=== PATIENT | female | born 1985 | race Caucasian/White ===

== ENCOUNTER 2024-06-15 11:24 | Emergency (ER) | payer BC, SELFPAY ==
--- NOTE | ~2024-06-15 | XR_ITS ---
XR knee LT 3V 06/15/2024 12:24 INDICATION: Left knee pain PROCEDURE: 4 views left knee COMPARISON: No prior studies for comparison. FINDINGS: Fracture, dislocation or subluxation is not identified. The soft tissues appear within norm al limits. No foreign bodies are identified. IMPRESSION: 1: NO ACUTE BONE OR JOINT ABNORMALITY IDENTIFIED. Reviewed, dictated and finalized at location B.
[2024-06-15 11:41] VITALS: BP 136/87; PULSE 72; RESP 16; TEMP 36.7; O2SAT 98
--- NOTE | 2024-06-15 11:57 | ED.LOWEXIN ---
HPI - Extremity Injury (Lower) General Chief Complaint: Extremity Injury, Lower Stated Complaint: fall off step ladder Time Seen by Provider: 06/15/24 11:55 Source: patient, RN notes reviewed and old records reviewed Mode of arrival: ambulatory Limitations: no limitations History of Present Illness HPI Narrative: 38 year old female who [facility] with complaints of standing on a step ladder yesterday while hanging curtains and tripped off of it landing on her feet with pain to her left thigh and some to her left knee with movement since incident. Patient has applied ice to her left thigh and to her knee, has not taken any OTC oral or topical medication for pain. Patient reports that she is able to bear weight to her left leg but with discomfort with limp noted.Patient denies any tingling or numbness to her left leg, pulses palpable of adequate quality, no redness or bruising noted or acute edema. MD complaint: thigh injury (left) and knee injury (left) Onset (ago): day(s) (yesterday) Type of Injury: other (fall from step ladder) Place: home Severity scale (1-10): 4 Treatments prior to arrival: cold therapy Related Data Home Medications Medication Instructions Recorded Confirmed No Home Medications 06/15/24 06/15/24 Allergies Allergy/AdvReac Type Severity Reaction Status Date / Time codeine Allergy Anaphylaxis Verified 06/15/24 11:48 Review of Systems Review of Systems: CONSTITUTIONAL: Denies fever, chills, or sweats. EYES: Denies visual changes, redness, or discharge. ENT: Denies rhinorrhea, congestion, sore throat, or otalgia. CARDIOVASCULAR: Denies chest pain, palpitations, or edema. RESPIRATORY: Denies cough or dyspnea. GASTROINTESTINAL: Denies abdominal pain, nausea, vomiting, or diarrhea. GENITOURINARY: Denies dysuria or hematuria. SKIN: Denies rash or itching. MUSCULOSKELETAL: Denies back pain, pain to her anterior left thigh and some to anterior and posterior left knee, or myalgia. NEUROLOGIC: Denies headache, numbness, or weakness. PSYCHIATRIC: Denies anxiety or depression. All systems reviewed & are unremarkable except as noted in HPI and below PMFSH Social History Social History (Updated 06/15/24 @ 13:14 by Angie Zapien NP) Smoking status: Never smoker Alcohol intake: current Alcohol use details: rare social Substance use type: does not use Gender identity (if verbalized by the patient): Female Comments At time of signature, agree with nursing past medical, surgical, social and family history. There is no relevant family history pertinent to the presenting complaint Exam Narrative: GENERAL: Well-appearing, well-nourished, and in no acute distress. HEAD: Normocephalic, atraumatic. EYES: PERRLA and EOMI. ENT: Nares clear, no rhinorrhea or epistaxis. Mucous membranes moist. NECK: Supple. no lymphadenopathy CHEST: Clear to auscultation. No respiratory distress.SAO2 98% on room air HEART: Regular rate and rhythm. No murmur heard. Normal peripheral pulses. ABDOMEN: Soft, nontender, nondistended, normal active bowel sounds. EXTREMITIES: Normal range of motion. No edema.reports pain to anterior left thigh and to anterior and posterior left knee after tripping off of step ladder landing on her feet but possibly twisting her left knee or thigh region. no swelling noted or any bruising reports pain especially with ambulation, sensation and circulation intact with strong pulses to left leg.. SKIN: Warm, dry, no rash. NEURO: No focal deficits. Alert and oriented x3. Course Course Emergency Course: Patient is aware of diagnosis, understands and agrees to treatment plan.? Anticipatory guidance given.? Patient agrees to follow-up as directed and is aware of reasons to seek care at the emergency department. Portions of this record may have been created with voice recognition software Level of Care: Express Care Visit Vital Signs Vital signs: Vital Signs Temperature 36.7 C
== END 2024-06-15 12:56 | disposition home or self-care (01) ==
PROVIDERS: Emergency Provider Registered Nurse; PCP Physician Assistant
DX: M79.652 Pain in left thigh (principal); M25.562 Pain in left knee
CPT/HCPCS: 73562; 99203; G0463